=== PATIENT | female | born 1980 | race Caucasian/White ===

== ENCOUNTER → 2025-05-24 11:50 | Outpatient (BNVA) | payer OTHER, SELFPAY | PROVIDERS: Family Provider Family Medicine; PCP Family Medicine; Visit Provider Internal Medicine | DX: E07.9 Disorder of thyroid, unspecified (principal); R53.83 Other fatigue; R41.89 Other symptoms and signs involving cognitive functions and awareness; Z83.49 Family history of other endocrine, nutritional and metabolic diseases | CPT/HCPCS: 36415; 82670; 83001; 83002; 83516; 83520; 84439; 84443; 86376; 86800 ==